=== PATIENT | female | born 1935 | race Hispanic/Latino ===

== ENCOUNTER 2017-05-24 11:14 | Outpatient (CLI) | payer MEDICARE ==
--- NOTE | 2017-05-30 08:04 | Vascular Lab Report ---
CAROTID DUPLEX STUDY: RIGHT PSVEDV CCA PROX:1349 CCA DIST:[id number] ICA PROX:[id number] ICA MID:8913 ICA DIST:896 ECA: 2440 VERT: 93 9 LEFT PSVEDV CCA PROX:929 CCA DIST:[id number] ICA PROX:20703 ICA MID:8818 ICA DIST:8217 ECA: [id number] VERT: 41 9 REASON FOR EXAM: Carotid artery stenosis /dizziness. COMMENTS ON THE RIGHT: Doppler frequency analysis is consistent with 50 to 79 percent diameter reduction of the internal carotid artery. Moderate amount of plaque is noted in the carotid bulb The common carotid artery is patent. The external carotid artery is patent. The vertebral artery has antegrade flow. COMMENTS ON THE LEFT: Doppler frequency analysis is consistent with 16 to 49 percent diameter reduction of the internal carotid artery. Minimal amount of plaque is seen. The common carotid artery is patent. The external carotid artery is patent. The vertebral artery has antegrade flow. 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 Clinical correlation is recommended. Contrast study could be considered.
== END 2017-05-24 11:15 | disposition home or self-care (01) ==
LOC: ECHO 11:14
PROVIDERS: ATTEND Internal Medicine
DX: I65.23 Occlusion and stenosis of bilateral carotid arteries (principal); I08.1 Rheumatic disorders of both mitral and tricuspid valves; I27.20 Pulmonary hypertension, unspecified
CPT/HCPCS: 93306; 93880

== ENCOUNTER 2021-08-29 11:09 | Outpatient (CLI) | payer MEDICARE ==
[2021-08-29 12:06] LABS: Hematocrit 31.6 % (30.3-42.9); Hemoglobin 10.9 gm/dl (10.1-14.3); Mean Corpuscular HGB Conc 35 % (30-34); Mean Corpuscular Volume 84 fl (79-97); Platelet Count 112 K/mm3 (140-440); Red Blood Count 3.76 M/mm3 (3.65-5.03); Red Cell Distribution Width 18.9 % (13.2-15.2)
[2021-08-29 12:24] LABS: Albumin 3.5 g/dL (3.9-5); Calcium 9.9 mg/dL (8.4-10.2); Chol/HDL Ratio 4.45 %
== END 2021-08-29 11:10 | disposition home or self-care (01) ==
LOC: LAB 11:09
PROVIDERS: ATTEND Internal Medicine
DX: R53.83 Other fatigue (principal); E11.65 Type 2 diabetes mellitus with hyperglycemia; E78.2 Mixed hyperlipidemia; I10 Essential (primary) hypertension; E55.9 Vitamin D deficiency, unspecified; D64.9 Anemia, unspecified; Z00.00 Encounter for general adult medical examination without abnormal findings
CPT/HCPCS: 36415; 80053; 80061; 83036; 83540; 84443; 85027